=== PATIENT | female | born 1945 | race Caucasian/White ===

== ENCOUNTER 2019-05-13 09:57 | Outpatient (CLI) | payer MEDICARE, OTHER ==
[~2019-05-13 09:57] MED LIST: CALC200T3 PO; ERGO500017 PO; LEVO112T41 PO; OXYC5TAB2 PO
[2019-05-13] MEDS ORDERED: GADOTERATE 10 MMOL/20 ML SYR ONE (10:41)
== END 2019-05-13 23:59 | disposition home or self-care (01) ==
LOC: CFH 09:57
PROVIDERS: ATTEND Neurological Surgery
DX: D32.9 Benign neoplasm of meninges, unspecified (principal); I67.82 Cerebral ischemia; G31.89 Other specified degenerative diseases of nervous system
CPT/HCPCS: 70553; A9575